=== PATIENT | male | born 2000 | race Hispanic/Latino ===

== ENCOUNTER 2018-07-16 12:52 | Emergency (ER) | payer SELFPAY ==
[~2018-07-16] VITALS: Ht 172.7 cm; Wt 63.5 kg
[2018-07-16] MEDS ORDERED: CEFTRIAXONE SOD 1 GM VIAL IM ONE (13:30)
[2018-07-16] MEDS ORDERED: AZITHROMYCIN 250 MG TAB PO NR (14:00)
[2018-07-16] MEDS ORDERED: CEFTRIAXONE SOD 250 MG VIAL IM NR (14:00)
[2018-07-16 15:22] LABS: BILIRUBIN,URINE NEGATIVE (NEGATIVE); CLARITY,URINE SL CLOUDY (CLEAR); COLOR,URINE YELLOW (YELLOW); KETONES,URINE 1+ (NEGATIVE); LEUKOCYTE ESTERASE ,URINE 1+ (NEGATIVE); NITRITE,URINE NEGATIVE (NEGATIVE); PROTEIN,URINE DIPSTICK NEGATIVE (NEGATIVE); URINE UROBILINOGEN 0.2 mg/dL (0.2 - 1)
[2018-07-16 15:37] LABS: AMORPHOUS SEDIMENT,URINE MODERATE (FEW); EPITHELIAL CELLS,URINE FEW /LPF
== END 2018-07-16 15:04 | disposition home or self-care (01) ==
LOC: ER 12:52
DX: A54.01 Gonococcal cystitis and urethritis, unspecified (principal)
CPT/HCPCS: 81001; 87086; 99283; J0696

== ENCOUNTER 2018-10-24 15:42 | Emergency (ER) | payer SELFPAY ==
[~2018-10-24] VITALS: Ht 170.2 cm; Wt 54.9 kg
[2018-10-24] MEDS ORDERED: AZITHROMYCIN 250 MG TAB PO ONE (16:45)
[2018-10-24] MEDS ORDERED: CEFTRIAXONE SOD 250 MG VIAL IM ONE (16:45)
[2018-10-24 17:40] VITALS: BP 104/90
== END 2018-10-24 17:37 | disposition home or self-care (01) ==
LOC: ER 15:42
DX: A56.01 Chlamydial cystitis and urethritis (principal); Z20.2 Contact with and (suspected) exposure to infections with a predominantly sexual mode of transmission
CPT/HCPCS: 99282; J0696

== ENCOUNTER 2020-10-01 22:04 | Emergency (ER) | payer SELFPAY ==
[~2020-10-01] VITALS: Ht 170.2 cm; Wt 54.9 kg
[2020-10-01] MEDS ORDERED: AZITHROMYCIN 250 MG TAB PO ONE (22:30)
[2020-10-01] MEDS ORDERED: METRONIDAZOLE 500 MG TAB PO ONE (22:30)
[2020-10-01] MEDS ORDERED: CEFTRIAXONE SOD 250 MG VIAL IM ONE (22:30)
[2020-10-01] MEDS ORDERED: ONDANSETRON HCL 4 MG ORAL DISINTEGRATING TAB PO ONE (22:30)
[2020-10-01 22:47] LABS: CLARITY,URINE CLOUDY (CLEAR); LEUKOCYTE ESTERASE ,URINE TRACE (NEGATIVE); NITRITE,URINE NEGATIVE (NEGATIVE)
[2020-10-01 22:48] LABS: COLOR,URINE YELLOW (YELLOW); KETONES,URINE 2+ (NEGATIVE); PROTEIN,URINE DIPSTICK 1+ (NEGATIVE); URINE UROBILINOGEN 0.2 mg/dL (0.2 - 1)
[2020-10-01 22:57] LABS: BACTERIA,URINE FEW /HPF; EPITHELIAL CELLS,URINE FEW /LPF; MUCUS,URINE MODERATE (RARE); WBC,URINE (MAN) 21-50 /HPF (0-5)
[2020-10-01 23:05] VITALS: BP 126/84
== END 2020-10-01 23:07 | disposition home or self-care (01) ==
LOC: ER 22:54
DX: A64 Unspecified sexually transmitted disease (principal)
CPT/HCPCS: 81001; 99283; J0696; Q0162

== ENCOUNTER 2020-11-08 05:53 | Emergency (ER) | payer SELFPAY ==
[~2020-11-08] VITALS: Ht 170.2 cm; Wt 54.9 kg
== END 2020-11-08 09:47 | disposition home or self-care (01) ==
LOC: ER 06:01
DX: M21.821 Other specified acquired deformities of right upper arm (principal); S00.83XA Contusion of other part of head, initial encounter; S00.33XA Contusion of nose, initial encounter; S20.219A Contusion of unspecified front wall of thorax, initial encounter; Y04.0XXA Assault by unarmed brawl or fight, initial encounter; Y92.098 Other place in other non-institutional residence as the place of occurrence of the external cause; F17.210 Nicotine dependence, cigarettes, uncomplicated
CPT/HCPCS: 70450; 70486; 71045; 72125; 99283